=== PATIENT | female | born 1985 | race Hispanic/Latino ===

== ENCOUNTER 2017-03-08 21:19 | Emergency (ER) | payer BC, OTHER ==
[2017-03-08 21:29] VITALS: BP 125/85; RESP 17; TEMP 98; O2SAT 100
--- NOTE | 2017-03-08 21:42 | ED PDOC ---
HPI: General Adult Time Seen by Provider: 03/08/17 21:30 Chief Complaint (Nursing): Rib Injury Chief Complaint (Provider): Left-Sided Chest Injury History Per: Patient History/Exam Limitations: no limitations Onset/Duration Of Symptoms: Days Additional Complaint(s): 21:30 Pippa Watson is a 31 year old female with a history of asthma that presents to the ED with a chief complaint of left-sided chest pain that she began to experience two days ago as a direct result of a fall. Patient states that she slipped and fell backwards towards her left side two days ago, at which point she injured the left side of her chest, from which she has been experiencing left-sided chest pain that is worsened with deep inspiration and movement. She also denies any head injury. PMD: Non-[facility] Provider Mariajose Past Medical History Reviewed: Historical Data, Nursing Documentation, Vital Signs Vital Signs: Last Vital Signs Temp 98.0 F 03/08/17 21:26 Pulse 85 03/08/17 21:26 Resp 17 03/08/17 21:26 BP 125/85 03/08/17 21:26 Pulse Ox 100 03/08/17 21:46 - Medical History PMH: Asthma - Family History Family History: States: Unknown Family Hx - Home Medications Home Medications: Ambulatory Orders Medication Instructions Recorded Naproxen [Naprosyn] 500 mg PO BID PRN #30 tab 03/08/17 - Allergies Allergies/Adverse Reactions: Allergies Allergy/AdvReac Type Severity Reaction Status Date / Time Penicillins Allergy NAUSEA Verified 03/08/17 21:30 Review of Systems Constitutional: Negative for: Other (denies head injury) Cardiovascular: Positive for: Chest Pain (left-sided) Physical Exam - Reviewed Nursing Documentation Reviewed: Yes Vital Signs Reviewed: Yes - Physical Exam Appears: Positive for: Non-toxic, No Acute Distress Head Exam: Positive for: ATRAUMATIC, NORMOCEPHALIC Skin: Positive for: Normal Color, Warm Cardiovascular/Chest: Positive for: Regular Rate, Rhythm. Negative for: Chest Non Tender (moderate left-sided axillary and anterior chest wall tenderness), Murmur Respiratory: Positive for: Normal Breath Sounds. Negative for: Wheezing Gastrointestinal/Abdominal: Positive for: Soft. Negative for: Tenderness (no abdominal tenderness, including subcostal tenderness) Back: Negative for: L CVA Tenderness, R CVA Tenderness, Vertebral Tenderness Neurologic/Psych: Positive for: Alert, Oriented - ECG ECG: Positive for: Interpreted By Me ECG Rhythm: Positive for: Sinus Rhythm. Negative for: ST/T Changes Rate: 66 O2 Sat by Pulse Oximetry: 100 (RA) Pulse Ox Interpretation: Normal - Radiology X-Ray: Interpreted by Me (L rib series x-ray) X-Ray Interpretation: No Acute Disease Medical Decision Making Medical Decision Makin:33 Initial Impression: Left-Sided Chest Injury Initial Plan: * EKG * X-Ray Left Ribs and PA Chest * Reevaluation Scribe Attestation: Documented by Karma Yoon, acting as a scribe for Ian Mcnamara PA-C. Provider Scribe Attestation: All medical record entries made by the Scribe were at my direction and personally dictated by me. I have reviewed the chart and agree that the record accurately reflects my personal performance of the history, physical exam, medical decision making, and the department course for this patient. I have also personally directed, reviewed, and agree with the discharge instructions and disposition. Disposition - Clinical Impression Clinical Impression: Chest wall contusion - Patient ED Disposition Is Patient to be Admitted: No - Disposition Disposition: Routine/Home Disposition Time: 22:35 Condition: STABLE Prescriptions: Naproxen [Naprosyn] 500 mg PO BID PRN #30 tab PRN Reason: Pain Instructions: Chest Wall Pain (ED) Print Language: [place]
[2017-03-08 22:36] VITALS: PULSE 66
--- NOTE | 2017-03-09 12:24 | RAD ---
PROCEDURE: Radiographs of the Chest and Left Ribs. HISTORY: trauma COMPARISON: None available. TECHNIQUE: Frontal radiograph of the chest and multiple oblique radiographs of the left ribs were obtained. FINDINGS: LEFT RIBS: No fracture or focal lesion visualized. LUNGS: Clear. PLEURA: No pneumothorax or pleural fluid. CARDIOVASCULAR: Normal sized heart. No pulmonary vascular congestion. OTHER FINDINGS: None. IMPRESSION: Unremarkable radiographs of the chest and left ribs. No left rib fracture.
--- NOTE | 2017-03-09 20:51 | CARD ---
APPROVED REPORT EKG Measurement Heart [id number] <Conclusion> Normal sinus rhythm with sinus arrhythmia Normal ECG
== END 2017-03-08 22:44 | disposition home or self-care (01) ==
LOC: H.ER 21:19
DX: S20.219A Contusion of unspecified front wall of thorax, initial encounter (principal); W01.0XXA Fall on same level from slipping, tripping and stumbling without subsequent striking against object, initial encounter; Y92.89 Other specified places as the place of occurrence of the external cause; J45.909 Unspecified asthma, uncomplicated; Z88.0 Allergy status to penicillin

== ENCOUNTER 2018-01-26 21:34 | Emergency (ER) | payer OTHER ==
[2018-01-26 21:58] VITALS: BP 118/67; PULSE 96; RESP 20; TEMP 99; O2SAT 100
[2018-01-26] MEDS ORDERED: Albuterol-Ipratrop 3 mg / 0.5 (3 ml) UD INH STA (21:59)
--- NOTE | 2018-01-26 21:59 | ED PDOC ---
HPI: General Adult Time Seen by Provider: 01/26/18 21:59 Chief Complaint (Nursing): Cough, Cold, Congestion Chief Complaint (Provider): cough, congestion History Per: Patient Additional Complaint(s): 32-year-old female with history of asthma presents with cough and chest congestion 2 days with no fever or chills. Patient states maintenance asthma medications are not helping her symptoms. She denies any chest pain. Patient has slight wheezing and shortness of breath. PMD: Dr. Alfaro Past Medical History Reviewed: Historical Data, Nursing Documentation, Vital Signs Vital Signs: Last Vital Signs Temp 99 F 01/26/18 21:53 Pulse 96 H 01/26/18 21:53 Resp 20 01/26/18 21:53 BP 118/67 01/26/18 21:53 Pulse Ox 100 01/26/18 22:19 - Medical History PMH: Asthma - Surgical History Other surgeries: sinus surgery - Family History Family History: States: No Known Family Hx - Living Arrangements Living Arrangements: With Family - Social History Current smoker - smoking cessation education provided: No Alcohol: Social Drugs: Denies - Home Medications Home Medications: Ambulatory Orders Medication Instructions Recorded Naproxen [Naprosyn] 500 mg PO BID PRN #30 tab 03/08/17 Albuterol HFA [Ventolin HFA 90 1 puff IH ASDIR #1 unit 01/26/18 mcg/actuation (8 g)] Azithromycin [Zithromax] 250 mg PO DAILY #6 tab 01/26/18 Benzonatate 200 mg PO TID PRN #20 capsule 01/26/18 Methylprednisolone [Medrol Dose 4 mg PO ASDIR #21 mg 01/26/18 Pack (21 tabs)] - Allergies Allergies/Adverse Reactions: Allergies Allergy/AdvReac Type Severity Reaction Status Date / Time Penicillins Allergy NAUSEA Verified 03/08/17 21:30 Review of Systems ROS Statement: Except As Marked, All Systems Reviewed And Found Negative Constitutional: Negative for: Fever, Chills Cardiovascular: Negative for: Chest Pain Respiratory: Positive for: Cough, Shortness of Breath, Wheezing Gastrointestinal: Negative for: Vomiting Physical Exam - Reviewed Nursing Documentation Reviewed: Yes Vital Signs Reviewed: Yes - Physical Exam Appears: Positive for: Well, Non-toxic, No Acute Distress Skin: Negative for: Rash Eye Exam: Positive for: Normal appearance ENT: Positive for: Normal ENT Inspection Cardiovascular/Chest: Positive for: Regular Rate, Rhythm Respiratory: Positive for: Wheezing (Bilateral inspiratory and expiratory) Extremity: Positive for: Normal ROM Neurologic/Psych: Positive for: Alert, Oriented - Laboratory Results Urine POC: Negative - ECG O2 Sat by Pulse Oximetry: 100 Pulse Ox Interpretation: Normal - Other Rad CXR X-Ray: Interpreted by Me, Viewed By Me X-Ray Interpretation: no acute finding Nebulizer Treatments/Peak Flow - Duonebs Number of Bronchodilator Doses given?: 1 (duoneb) - Pre/Post Peak Flow Pre Treatment Peak Flow: 250 Post treatment Peak Flow: 350 - Steroid Treatment Steroid: Oral (prednisone 40 mg) - Clinical Response Clinical Response: Improved Medical Decision Making Medical Decision Makin32 year old with cough Plan: CXR Dyoneb x 1 Prednisone 40 mg PO Prescriptions given for Zithromax, Medrol Dosepak, Tessalon Perles and Ventolin inhaler. Patient was advised to follow up with primary doctor in 2-3 days. Disposition - Clinical Impression Clinical Impression: Asthmatic bronchitis - Patient ED Disposition Is Patient to be Admitted: No Counseled Patient/Family Regarding: Studies Performed, Diagnosis, Need For Followup, Rx Given - Disposition Referrals: [facility] [Outside] Disposition: Routine/Home Disposition Time: 23:14 Condition: STABLE Additional Instructions: Take prescription meds as directed. Follow up in 2-3 days with primary doctor. Prescriptions: Albuterol HFA [Ventolin HFA 90 mcg/actuation (8 g)] 1 puff IH ASDIR #1 unit Azithromycin [Zithromax] 250 mg PO DAILY #6 tab Benzonatate 200 mg PO TID PRN #20 capsule PRN Reason: Cough Methylprednisolone [Medrol Dose Pack (21 tabs)] 4 mg PO ASDIR #21 mg Instructions: Asthma in Adults, Acute Bronchitis Forms: [facility] ([place]), [facility] ED School/Work Excuse
[2018-01-26] MEDS ORDERED: Albuterol-Ipratrop 3 mg / 0.5 (3 ml) UD ONE (22:39)
--- NOTE | 2018-01-27 09:23 | RAD ---
HISTORY: cough COMPARISON: Chest radiograph 03/08/2017. TECHNIQUE: Chest PA and lateral FINDINGS: LUNGS: No active pulmonary disease. PLEURA: No significant pleural effusion identified. No pneumothorax apparent. CARDIOVASCULAR: Normal. OSSEOUS STRUCTURES: No significant abnormalities. VISUALIZED UPPER ABDOMEN: Normal. OTHER FINDINGS: None. IMPRESSION: No interval acute cardiopulmonary disease appreciated.
== END 2018-01-26 23:55 | disposition home or self-care (01) ==
LOC: H.ER 21:34
DX: J45.909 Unspecified asthma, uncomplicated (principal)